=== PATIENT | female | born 1935 | race Caucasian/White ===

== ENCOUNTER → 2017-10-29 | Outpatient (CLI) | payer MEDICARE, OTHER ==
[~2017-10-29] MED LIST: 3 BP MEDS; ADVA100A; NORV2.5T11; POTA-243 PO; SIMV5TAB32 PO; SPIRCAP INH
[2017-10-29 13:58] LABS: BICARBONATE 27.9 MEQ/L (21.0-32.0); CALCIUM 9.3 MG/DL (8.5-10.1); CREATININE 1.02 MG/DL (0.50-1.00)
== END ==
LOC: PLAB 09:21
PROVIDERS: ATTEND Internal Medicine Interventional Cardiology
DX: I11.9 Hypertensive heart disease without heart failure (principal); E78.1 Pure hyperglyceridemia; R06.02 Shortness of breath
CPT/HCPCS: 36415; 80048